=== PATIENT | female | born 1945 | race Caucasian/White ===

== ENCOUNTER 2018-11-26 14:12 | Emergency (ER) | payer MEDICAID ==
[~2018-11-26] VITALS: Ht 157.5 cm; Wt 117.9 kg
--- NOTE | 2018-11-26 14:30 | NUR ---
DR PLASENCIA AT THE BEDSIDE FOR MSE.
[2018-11-26] MEDS ORDERED: TRAMADOL HCL 50 MG TABLET ONE (14:41)
[2018-11-26] MEDS ORDERED: TRAMADOL HCL 50 MG TABLET PO ONE (14:45)
--- NOTE | 2018-11-26 15:53 | NUR ---
Patient discharged to home in stable conditon. Written and verbal after care instructions given. Patient and pt's daughter verbalize understanding of instructions.
[2018-11-26 15:55] VITALS: BP 139/88
== END 2018-11-26 15:56 | disposition home or self-care (01) ==
LOC: ER 14:12
DX: S20.211A Contusion of right front wall of thorax, initial encounter (principal); S80.11XA Contusion of right lower leg, initial encounter; S83.91XA Sprain of unspecified site of right knee, initial encounter; K21.9 Gastro-esophageal reflux disease without esophagitis; W18.30XA Fall on same level, unspecified, initial encounter; Y93.89 Activity, other specified; Y92.89 Other specified places as the place of occurrence of the external cause; Y99.8 Other external cause status
CPT/HCPCS: 71101; A4663

== ENCOUNTER 2019-02-18 22:47 | Emergency (ER) | payer MEDICAID ==
[~2019-02-18] VITALS: Ht 152.4 cm; Wt 108.9 kg
--- NOTE | 2019-02-18 23:33 | NUR ---
Patient discharged to home in stable conditon. Written and verbal after care instructions given. Patient verbalizes understanding of instructions. Patient ambulated with stable gait.
[2019-02-18 23:36] VITALS: BP 152/88
== END 2019-02-18 23:37 | disposition home or self-care (01) ==
LOC: ER 22:47
DX: H10.9 Unspecified conjunctivitis (principal); J06.9 Acute upper respiratory infection, unspecified; K21.9 Gastro-esophageal reflux disease without esophagitis
CPT/HCPCS: A4663